=== PATIENT | female | born 1945 | race Caucasian/White ===

== ENCOUNTER 2016-09-11 09:19 | Day surgery (SDC) | payer MEDICARE, OTHER ==
[2016-09-08 22:12] LABS: BASOPHILS 1.2 %; BASOPHILS ABSOLUTE 0.06 10/3/uL (0.0-0.16); EOSINOPHILS 6.2 %; EOSINOPHILS ABSOLUTE 0.31 10/3/uL (0.0-0.53); HEMATOCRIT 35.6 % (36.0-48.0); HEMOGLOBIN 10.8 g/dL (12.0-16.0); IMMATURE GRANULOCYTES 1.8 %; IMMATURE GRANULOCYTES ABSOLUTE 0.09 10/3/uL (0.0-0.11); LYMPHOCYTES 18.3 %; LYMPHOCYTES ABSOLUTE 0.92 10/3/uL (0.67-4.30); MEAN CORPUSCULAR HEMOGLOB 28.4 pg (26.0-34.0); MEAN PLATELET VOLUME 9.3 fL (9.2-13.0); MONOCYTES 18.3 %; MONOCYTES ABSOLUTE 0.92 10/3/uL (0.21-1.20); NEUTROPHILS 54.2 %; NEUTROPHILS ABSOLUTE 2.74 10/3/uL (2.02-8.40); PLATELET COUNT 259 10/3/uL (150-400)
[2016-09-08 22:13] LABS: MANUAL DIFF NO %; MEAN CORPUS HGB CONC 30.3 g/dL (32.0-36.0); MEAN CORPUSCULAR VOLUME 93.7 fL (80-100); RBC DISTRIBUTION WIDTH 16.8 % (12.0-16.0)
[2016-09-08 22:16] LABS: ALBUMIN 3.6 G/DL (3.5-5.0); CALCIUM, SERUM 9.2 MG/DL (8.5-10.4); CHLORIDE, SERUM 102 MMOL/L (96-112); CO2 (CARBON DIOXIDE) 32 MMOL/L (24-34); CREATININE 0.63 MG/DL (0.55-1.02); GFR AFRICAN AMERICAN 105 ML/MIN (>=60); GFR NON AFRICAN AMERICAN 90 ML/MIN (>=60); GLUCOSE, SERUM 144 MG/DL (60-99); POTASSIUM, SERUM 4.2 MMOL/L (3.5-5.3); SGOT(AST) 7 U/L (5-40); SGPT(ALT) 15 U/L (5-65); SODIUM, SERUM 144 MMOL/L (135-148); TOTAL BILIRUBIN 0.3 MG/DL (0-1.2)
[2016-09-08 22:17] LABS: A/G RATIO 1.5 (0.7-1.9); ALKALINE PHOSPHATASE 55 U/L (45-117); BUN (BLOOD UREA NITROGEN) 9 MG/DL (6-23); GLOBULIN 2.4 G/DL (2.5-4.1)
--- NOTE | ~2016-09-11 | PREOPHP ---
PreOp History and Physical [address] [place]. [address] NAME: LUIS VAZQUEZ : 45 [place]US : [place] [facility] [place]#: [id number] AGE: 71 ADM/REG DATE : MR#: [id number] REPORT SERV DATE: 09/11/16 DICTATED BY: ERUM CASTILLO III DATE: 08/27/16 REPORT STATUS : Draft TRANSCRIBED BY: MODL DATE: 08/27/16 HISTORY OF PRESENT ILLNESS: This 71-year-old female comes to the operating room for right breast lumpectomy with stereotactic wire localization, sentinel lymph node biopsy, and possible axillary dissection. The patient was recently diagnosed with a cancer of the right breast. She had a palpable mass at the 10 o'clock position of the right breast. This was a triple-negative cancer, approximately 2.3 cm in size radiographically. The patient has completed neoadjuvant chemotherapy. The mass has resolved clinically. She has elected to have breast conservative therapy. She comes now for right breast lumpectomy with radiographic localization of the tumor, sentinel lymph node biopsy, and possible axillary dissection. The option of mastectomy has been offered to the patient, but declined. PAST MEDICAL HISTORY: 1. Diabetes mellitus. 2. COPD. 3. Hypertension. 4. Hyperlipidemia. 5. Osteoarthritis. 6. History of aortic valve replacement. ALLERGIES: SULFA. PAST SURGICAL HISTORY: Includes hysterectomy, Port-A-Cath placement, right shoulder surgery, aortic valve replacement, and bilateral knee replacement. FAMILY HISTORY: Positive for hypertension and diabetes. MEDICATIONS: Aspirin, Byetta, estradiol, glipizide, hydrocodone, losartan, metformin, and pravastatin. PHYSICAL EXAMINATION: GENERAL: This is a female, in no acute distress. She is alert and oriented x3. VITAL SIGNS: Blood pressure 104/55, heart rate 98, and temp 97.7. HEENT: Unremarkable. Cranial nerves II through XII are normal. LUNGS: Clear. CARDIAC: Normal. BREASTS: The right breast is unremarkable. The previous mass is no longer palpable. The right nipple is normal without discharge. The right axilla is normal without adenopathy. The left breast is normal with no masses or abnormalities palpable. The left nipple is normal without discharge. The left axilla is normal without adenopathy. EXTREMITIES: Normal. ASSESSMENT: 1. A 71-year-old female with 2.3 cm invasive ductal cancer at the 10 o'clock position of PreOp History and Physical [address] [address] NAME: LUIS VAZQUEZ : 45 STATUS : [place] [facility] [place]#: [id number] AGE: 71 ADM/REG DATE : MR#: [id number] REPORT SERV DATE: 09/11/16 DICTATED BY: ERUM CASTILLO III DATE: 08/27/16 REPORT STATUS : Draft TRANSCRIBED BY: CANDIE DATE: 08/27/16 the right breast, status post neoadjuvant chemotherapy with good clinical response. 2. Chronic obstructive pulmonary disease. 3. Arthritis. 4. Hyperlipidemia. 5. Hypertension. 6. Diabetes mellitus. It should be noted that the patient has a clinical stage IIA breast cancer. PLAN: The patient comes to the operating room now for right breast lumpectomy with stereotactic wire localization, sentinel lymph node biopsy, and possible axillary dissection if her sentinel lymph node is positive for malignancy. The option of mastectomy has been offered to the patient, but declined. Regarding the surgery, the procedure, risks, benefits, and alternatives, including not limited to the risk for bleeding, infection, pain, swelling, scarring, or deformity to the area, seroma formation, hematoma formation, distortion of the breast, change in size of the breast, nerve injury, chronic paresthesia or pain in the arm, shoulder, or axilla, chronic lymphedema of the arm, nerve injuries, muscle weakness or paralysis in muscles of upper back or shoulder, possible need to return operating room for wider excision, completion of mastectomy, or completion axillary dissection, if there is discrepancy between the frozen section and final pathology report, and unforeseen complications including deep venous thrombosis, pulmonary embolus, myocardial infarction, stroke, pneumonia, and , have been explained to the patient prior to surgery. Her questions been answered. She clearly understands the risks and agrees to surgery as planned. NIRMALA/CANDIE Erum Castillo III, M.D. / [id number] CC: Raquel Morel NP
--- NOTE | ~2016-09-11 | OP ---
Record Of Operation [facility] [address] [place]. [address] NAME: LUIS VAZQUEZ : 45 STATUS : REG [place]#: [id number] AGE: 71 ADM/REG DATE : 09/11/16 MR#: [id number] REPORT SERV DATE: 09/11/16 DICTATED BY: ERUM RODRIGUEZ III DATE: 09/11/16 REPORT STATUS : Draft TRANSCRIBED BY: MODNupur DATE: 09/11/16 DATE OF PROCEDURE: 09/11/2016 PREOPERATIVE DIAGNOSIS: Invasive cancer of the right breast. POSTOPERATIVE DIAGNOSIS: Invasive cancer of the right breast. PROCEDURE: Right breast segmentectomy with sentinel lymph node biopsy, and stereotactic wire localization. SURGEON: Erum Rodriguez M.D. ANESTHESIA: General with intubation. COMPLICATIONS: None. ESTIMATED BLOOD LOSS: 20 mL. SPECIMENS: Lumpectomy specimen from right breast and sentinel lymph node from right axilla. DRAINS: None. LAP AND SPONGE COUNT: Correct x3. BRIEF HISTORY: This 71-year-old female, has a history of invasive cancer of the right breast. The patient is status post preoperative neoadjuvant chemotherapy. She had a good response clinically. It was now felt that right breast lumpectomy with sentinel lymph node biopsy, and possible axillary dissection was indicated. These procedures, the risks, benefits, and alternatives, including not limited to the risk for bleeding, infection, pain, swelling, scarring, deformity to the area, seroma formation, hematoma formation, distortion of breast, change in size of the breast, nerve injury, chronic paresthesia, or pain in the arm, shoulder, or axilla, chronic lymphedema of the arm, nerve injuries, muscle weakness or paralysis in the muscles of upper back or shoulder, possible need to return for wider excision, completion of mastectomy, or completion axillary dissection, if there were discrepancy with the frozen section and final pathology report, and unforeseen complications including deep venous thrombosis, pulmonary embolus, myocardial infarction, stroke, pneumonia, and , were fully and completely explained to the patient and family prior to surgery. The option of mastectomy was offered to the patient, but declined. The patient's questions were answered. She understood the risks and agreed to surgery as planned. PROCEDURE IN DETAIL: After being properly identified and after discussing the risks of surgery with the patient and family again in the preoperative area, and after lymphoscintigraphy and stereotactic wire localization of the lesion had been performed per Radiology, the patient was taken to the operating room, and placed in the supine position on the operating room table. General anesthesia was administered. She was intubated without difficulty. The right arm, breast, and axilla were prepped and draped sterilely in usual Record Of Operation [address] [address] NAME: LUIS VAZQUEZ : 45 STATUS : REG [facility] [place] PAT#: [id number] AGE: 71 ADM/REG DATE : 09/11/16 MR#: [id number] REPORT SERV DATE: 09/11/16 DICTATED BY: ERUM RODRIGUEZ III DATE: 09/11/16 REPORT STATUS : Draft TRANSCRIBED BY: CANDIE DATE: 09/11/16 fashion. After an appropriate "time-out" per JCAHO standards, a curvilinear incision was made in the upper outer quadrant of the right breast at the exit site of the guidewire from the skin, at about the 10 o'clock to the 9 o'clock position. A generous core of breast tissue was then resected using the guidewire at the center of the core. The incision was continued down to the major pectoral fascia. A portion of the major pectoral fascia was removed with the specimen. The specimen again including the guidewire which was in the center of the segmentectomy specimen was removed and oriented with sutures. This was sent to specimen imaging and interpreted as containing the clip. This was then sent to pathology and interpreted as containing the clip, but no visible tumor remaining after neoadjuvant therapy and clear margins. Through the same incision, we dissected into the right axilla. Using sharp dissection, we dissected in the right axilla. With the navigator probe, we identified two separate sentinel lymph nodes. These were both resected. The ex-vivo 10-second count of these together was approximately 4800. The background count of the axilla over 10 seconds after removal of these lymph nodes was 0. These sentinel lymph nodes were sent to pathology and interpreted as being benign with no evidence for malignancy. There are no suspicious lesions or adenopathy noted in the axilla. The wound was irrigated copiously with saline. Hemostasis was assured. The subcutaneous tissue was closed with a running 2-0 Vicryl suture. The skin was closed with running subcuticular 4-0 Monocryl stitch. The incision was injected with 0.5% Marcaine. Dressings were applied. Anesthesia was reversed and the patient was taken to the recovery room in stable condition. She tolerated the procedure well. Her family was informed the results of surgery. The patient to be discharged when stable and comfortable. Her family was advised that she should keep wound clean and dry for 48 hours, that she should not drive for three to four days after surgery or while using narcotics, and that she should resume her usual medications. She has been asked to return in two weeks for followup or sooner if any fever, chills, wound drainage, or other problems prior that time. She was given a prescription for Percocet 7.5 one t.i.d., #12, as needed for pain, which she was advised not to use while driving. RHJ/MODL Erum Rodriguez III, M.D. / [id number] CC: Serge Nicholas III, VICKY L *
[~2016-09-11 09:19] MED LIST: ADVAIR250 INH; ASAB PO; AVALIDE1 TA1 PO; BYETTA10 SC; ESTRACE0.5 MG PO; ESTRADIOL0.5 MG OR; FORTAMET500 MG PO; GLUCOPHAGE1000 MG PO; GLUCOTROL5 PO; GLUCXL2.5 PO; HYZAAR 100/25 T1 TAB PO; LANTUS SC; LEVEMFLXPN SC; LORTAB10 PO; LYRICA75 PO; NORCO1 TAB; NORCO1 TAB PO; NU IRON PO; PCET PO; PR12.5 PO; PRAVACHOL40 MG PO; PRILOSEC40 MG PO; RHINOAQ NAS; SINGULAIR1 PO; TRILIPIX135 MG PO; TYLENOL ARTH650 MG PO; VITAMIN C GUMMY PO; ZOL50 PO
[2016-12-10] MEDS ORDERED: CLARIT10 PO (11:33)
== END 2016-09-11 19:32 | disposition home or self-care (01) ==
LOC: SDC 09:19
PROVIDERS: Surgery
PROC: 07B50ZX Excision of Right Axillary Lymphatic, Open Approach, Diagnostic (ICD-10-PCS; 2016-09-11)
PROC: 0HBT0ZZ Excision of Right Breast, Open Approach (ICD-10-PCS; principal; 2016-09-11 13:30)
DX: C50.911 Malignant neoplasm of unspecified site of right female breast (principal); I10 Essential (primary) hypertension; F41.9 Anxiety disorder, unspecified; E11.9 Type 2 diabetes mellitus without complications; E66.9 Obesity, unspecified; E78.5 Hyperlipidemia, unspecified; J44.9 Chronic obstructive pulmonary disease, unspecified; G47.33 Obstructive sleep apnea (adult) (pediatric); Z99.89 Dependence on other enabling machines and devices; Z88.2 Allergy status to sulfonamides; Z79.82 Long term (current) use of aspirin; Z79.4 Long term (current) use of insulin; Z79.84 Long term (current) use of oral hypoglycemic drugs; Z79.3 Long term (current) use of hormonal contraceptives; Z79.899 Other long term (current) drug therapy; Z90.89 Acquired absence of other organs; E78.00 Pure hypercholesterolemia, unspecified; Z87.891 Personal history of nicotine dependence; J45.909 Unspecified asthma, uncomplicated; M19.90 Unspecified osteoarthritis, unspecified site; Z96.653 Presence of artificial knee joint, bilateral; Z86.010 Personal history of colon polyps; Z90.710 Acquired absence of both cervix and uterus; Z98.890 Other specified postprocedural states
CPT/HCPCS: 36415; 71020; 76098; 78195; 80053; 82962; 85025; 88307; 88331; 88332; 88342; 93005; A9270-GY; A9541; J0690; J1170; J2250; J2405; J2710; J3010

== ENCOUNTER 2016-12-15 05:36 | Day surgery (SDC) | payer MEDICARE, OTHER ==
[2016-12-10 17:51] LABS: BASOPHILS 0.7 %; BASOPHILS ABSOLUTE 0.04 10/3/uL (0.0-0.16); EOSINOPHILS 13.7 %; EOSINOPHILS ABSOLUTE 0.81 10/3/uL (0.0-0.53); HEMOGLOBIN 12.9 g/dL (12.0-16.0); IMMATURE GRANULOCYTES 0.3 %; IMMATURE GRANULOCYTES ABSOLUTE 0.02 10/3/uL (0.0-0.11); LYMPHOCYTES ABSOLUTE 1.01 10/3/uL (0.67-4.30); MEAN CORPUSCULAR HEMOGLOB 27.9 pg (26.0-34.0); MEAN PLATELET VOLUME 9.6 fL (9.2-13.0); MONOCYTES 7.9 %; MONOCYTES ABSOLUTE 0.47 10/3/uL (0.21-1.20); NEUTROPHILS 60.4 %; NEUTROPHILS ABSOLUTE 3.58 10/3/uL (2.02-8.40); PLATELET COUNT 205 10/3/uL (150-400); RBC DISTRIBUTION WIDTH 15.4 % (12.0-16.0); WHITE BLOOD CELLS 5.9 10/3/uL (4.5-10.5)
[2016-12-10 17:53] LABS: HEMATOCRIT 40.1 % (36.0-48.0); MANUAL DIFF NO %; MEAN CORPUS HGB CONC 32.2 g/dL (32.0-36.0); MEAN CORPUSCULAR VOLUME 86.8 fL (80-100); RED CELL COUNT 4.62 10/6/uL (4.0-5.6)
[2016-12-10 18:05] LABS: A/G RATIO 1.4 (0.7-1.9); ALBUMIN 3.9 G/DL (3.5-5.0); ALKALINE PHOSPHATASE 59 U/L (45-117); BUN (BLOOD UREA NITROGEN) 14 MG/DL (6-23); CALCIUM, SERUM 8.6 MG/DL (8.5-10.4); CHLORIDE, SERUM 105 MMOL/L (96-112); CREATININE 0.67 MG/DL (0.55-1.02); GFR AFRICAN AMERICAN 102 ML/MIN (>=60); GFR NON AFRICAN AMERICAN 88 ML/MIN (>=60); GLOBULIN 2.8 G/DL (2.5-4.1); SGPT(ALT) 17 U/L (5-65); SODIUM, SERUM 143 MMOL/L (135-148); TOTAL PROTEIN 6.7 G/DL (6.0-8.5)
[2016-12-10 18:08] LABS: CO2 (CARBON DIOXIDE) 27 MMOL/L (24-34); GLUCOSE, SERUM 89 MG/DL (60-99); POTASSIUM, SERUM 5.7 MMOL/L (3.5-5.3); TOTAL BILIRUBIN 1.1 MG/DL (0-1.2)
[2016-12-10 18:09] LABS: SGOT(AST) 30 U/L (5-40)
--- NOTE | ~2016-12-15 | OP ---
Record Of Operation [facility] [address] [place]. [address] NAME: LUIS VAZQUEZ : 45 STATUS : REG [facility] PAT#: [id number] AGE: 71 ADM/REG DATE : 12/15/16 MR#: [id number] REPORT SERV DATE: 12/15/16 DICTATED BY: ERUM RODRIGUEZ III DATE: 12/15/16 REPORT STATUS : Draft TRANSCRIBED BY: CANDIE DATE: 12/15/16 DATE OF PROCEDURE: 12/15/2016 PREOPERATIVE DIAGNOSIS: History of right breast cancer, in remission, need for removal of unused left subclavian Port-A-Cath. POSTOPERATIVE DIAGNOSIS: History of right breast cancer, in remission, need for removal of unused left subclavian Port-A-Cath. PROCEDURE: Removal of left subclavian Port-A-Cath. ANESTHESIA: General with intubation. COMPLICATIONS: None. ESTIMATED BLOOD LOSS: Less than 5 mL. SPECIMENS: Port-A-Cath for identification. DRAINS: None. LAP AND SPONGE COUNT: Correct x3. BRIEF HISTORY: This 71-year-old female, has a history of right breast cancer, stage II. She is status post lumpectomy, sentinel lymph node biopsy, and chemotherapy, and radiation treatment. She comes now for removal of her left subclavian Port-A-Cath. This procedure, the risks, benefits, and alternatives, including not limited to the risk for bleeding, infection, air embolus, pericardial tamponade, dislodgement of Port-A-Cath tubing requiring extraction, and unforeseen complications including deep venous thrombosis, pulmonary embolus, myocardial infarction, stroke, pneumonia, and , have been explained to the patient prior to surgery. She had questions, which were answered. She understood the risks and agreed to surgery as planned. DESCRIPTION OF PROCEDURE: After being properly identified, and after discussing risks of surgery with her again in the preoperative area, she was taken to the operating room and placed in the supine position on the operating room table. General anesthesia was administered. She was intubated without difficulty. The upper chest and neck areas were prepped and draped sterilely in the usual fashion. After an appropriate "time-out" per JCAHO standards, a small incision was made over the left infraclavicular Port-A-Cath over the previous incision. The incision was continued through subcutaneous tissue. Hemostasis was controlled with cautery. The capsule around the Port-A-Cath was opened. The sutures holding the Port-A-Cath in place were divided. The Port-A-Cath housing and tubing were removed. The entire tubing was removed. Pressure was held at the exit site of the tubing from the subcutaneous tissue to prevent air embolus. This exit site was closed with a 3-0 Vicryl suture. Hemostasis was assured. The subcutaneous tissue was closed with a running 3 0 Vicryl suture. The skin was closed with running subcuticular 4-0 Monocryl stitch. The Record Of Operation [id number] [facility] [place]. [address] NAME: LUIS VAZQUEZ : 45 STATUS : REG [facility]#: [id number] AGE: 71 ADM/REG DATE : 12/15/16 MR#: [id number] REPORT SERV DATE: 12/15/16 DICTATED BY: ERUM RODRIGUEZ III DATE: 12/15/16 REPORT STATUS : Draft TRANSCRIBED BY: CANDIE DATE: 12/15/16 incision was injected with 0.5% Marcaine. Dressings were applied. Anesthesia was reversed. The patient was taken to the recovery room in stable condition. She tolerated the procedure well. Her family was informed results of surgery. The patient will be discharged when stable and comfortable. Her family was advised to keep the wound clean and dry for 48 hours, that she should not drive for two to three days after surgery or while using narcotics, and that she should resume her usual medications. She was asked to return in two weeks for followup or sooner if any fever, chills, wound drainage, or other problems prior to that time. She was given a prescription for Percocet 7.5 one t.i.d. #12 as needed for pain, which she was advised not to use while driving or with other narcotics. She was advised to monitor her glucose carefully. NIRMALA/CANDIE Erum Rodriguez III, M.D. / [id number] CC: Serge Nicholas III, VICKY L *
--- NOTE | ~2016-12-15 | PREOPHP ---
PreOp History and Physical [address] [place]. [address] NAME: LUIS VAZQUEZ : 45 STATUS : REG [facility] [place] PAT#: [id number] AGE: 71 ADM/REG DATE : 12/15/16 MR#: [id number] REPORT SERV DATE: 12/15/16 DICTATED BY: ERUM CASTILLO III DATE: 12/15/16 REPORT STATUS : Draft TRANSCRIBED BY: MODNupur DATE: 12/15/16 HISTORY OF PRESENT ILLNESS: This is a 71-year-old female who comes to the operating room for removal of a left subclavian vein Port-A-Cath. The patient has a history of previous left breast cancer. She comes to the operating room now for removal of her left subclavian Port-A-Cath. The patient is status post appropriate surgical treatment and chemotherapy. PAST MEDICAL HISTORY: 1. History of stage II right breast cancer, status post right breast lumpectomy sentinel lymph node biopsy performed on 09/11/2016, no evidence for recurrent or residual disease. 2. Asthma. 3. COPD. 4. Insulin-dependent diabetes mellitus. 5. Hyperlipidemia. 6. Hypertension. ALLERGIES: TO SULFA. MEDICATIONS: 1. Aspirin. 2. Byetta. 3. Estradiol. 4. Glipizide. 5. Hydrocodone. 6. Losartan. 7. Metformin. 8. Pravastatin. PHYSICAL EXAMINATION: GENERAL: This is a female, in no acute distress. She is alert and oriented x3. HEENT: Unremarkable. Cranial nerves 2 through 12 are normal. LUNGS: Clear. CARDIAC: Unremarkable. She has a left infraclavicular Port-A-Cath in place. ASSESSMENT: 1. A 71-year-old female with history of right breast cancer, status post appropriate surgical treatment and chemotherapy and lumpectomy, with need for removal of left subclavian vein Port-A-Cath. 2. Asthma. 3. Chronic obstructive pulmonary disease. 4. Insulin-dependent diabetes mellitus. 5. Hypertension. PLAN: The patient comes to the operating room now for removal of her left subclavian vein Port-A-Cath. This procedure, the risks, benefits, and alternatives, including but not PreOp History and Physical [address] [place]. [address] NAME: LUIS VAZQUEZ : 45 STATUS : REG [facility] [place] PAT#: [id number] AGE: 71 ADM/REG DATE : 12/15/16 MR#: [id number] REPORT SERV DATE: 12/15/16 DICTATED BY: ERUM CASTILLO III DATE: 12/15/16 REPORT STATUS : Draft TRANSCRIBED BY: CANDIE DATE: 12/15/16 limited to the risk for bleeding, infection, air embolus, pericardial tamponade, dislodgement of tubing requiring extraction, and unforeseen complications including deep venous thrombosis, pulmonary embolus, myocardial infarction, stroke, pneumonia, and , have been explained to her. Her questions were answered. She understands the risks and agrees to surgery as planned. NIRMALA/CANDIE Erum Castillo III, M.D. / [id number] CC: Serge Nicholas III, NP
--- NOTE | ~2016-12-15 | PREOPHP ---
PreOp History and Physical [address] [place]. [address] NAME: LUIS VAZQUEZ : 45 STATUS : PRE [facility] [place] PAT#: [id number] AGE: 71 ADM/REG DATE : MR#: [id number] REPORT SERV DATE: 12/14/16 DICTATED BY: ERUM CASTILLO III DATE: 11/19/16 REPORT STATUS : Draft TRANSCRIBED BY: MODNupur DATE: 11/19/16 HISTORY OF PRESENT ILLNESS: This 71-year-old female comes to the operating room for removal of a Port-A-Cath. The patient has a history of previous right breast lumpectomy for breast cancer. She is status post appropriate treatment and chemotherapy. She comes now for removal of her Port-A Cath. PAST MEDICAL HISTORY: 1. History of stage II right breast cancer, status post right breast lumpectomy with sentinel lymph node biopsy performed 09/11/2016, with no evidence for residual or recurrent disease. 2. Asthma. 3. COPD. 4. Insulin-dependent diabetes mellitus. 5. Hypertension. 6. Hyperlipidemia. ALLERGIES: SULFA. MEDICATIONS: Aspirin; Byetta; estradiol; glipizide; hydrocodone; losartan; metformin; and pravastatin. PHYSICAL EXAMINATION: OBJECTIVE PHYSICAL EXAM: GENERAL: This is a female, in no acute distress. She is alert and oriented x3. HEENT: Unremarkable. NEUROLOGIC: Cranial nerves 2 through 12 are normal. LUNGS: Clear. CARDIAC: Normal. ASSESSMENT: 1. A 71-year-old female with a history of right breast cancer, status post appropriate treatment and chemotherapy, with need for removal of subclavian vein Port-A-Cath. 2. Asthma. 3. COPD. 4. Insulin-dependent diabetes mellitus. 5. Hypertension. PLAN: The patient comes to the operating room now for removal of her subclavian vein Port-A- Cath. This procedure, the risks, benefits, and alternatives, including but not limited to the risk for bleeding, infection, air embolus, pericardial tamponade, dislodgement of Port-A Cath tubing requiring extraction, and unforeseen complications including deep venous thrombosis, pulmonary embolus, myocardial infarction, stroke, pneumonia, and , have been explained the patient prior to surgery. Her questions have been answered. She understands the risks and agrees to the surgery as planned. PreOp History and Physical [address] [place] [address] NAME: LUIS VAZQUEZ : 45 STATUS : PRE [facility] [place] PAT#: [id number] AGE: 71 ADM/REG DATE : MR#: [id number] REPORT SERV DATE: 12/14/16 DICTATED BY: ERUM CASTILLO III DATE: 11/19/16 REPORT STATUS : Draft TRANSCRIBED BY: CANDIE DATE: 11/19/16 Reyonld/CANDIE Erum Castillo III, M.D. / [id number]
[~2016-12-15 05:36] MED LIST changes: +CLARIT10 PO
== END 2016-12-15 16:31 | disposition home or self-care (01) ==
LOC: SDC 05:36
PROVIDERS: Surgery
PROC: 0JPV0WZ Removal of Totally Implantable Vascular Access Device from Upper Extremity Subcutaneous Tissue and Fascia, Open Approach (ICD-10-PCS; principal; 2016-12-15 06:45)
DX: Z45.2 Encounter for adjustment and management of vascular access device (principal); I10 Essential (primary) hypertension; E78.00 Pure hypercholesterolemia, unspecified; E11.9 Type 2 diabetes mellitus without complications; J44.9 Chronic obstructive pulmonary disease, unspecified; J45.909 Unspecified asthma, uncomplicated; G47.33 Obstructive sleep apnea (adult) (pediatric); F41.9 Anxiety disorder, unspecified; M19.90 Unspecified osteoarthritis, unspecified site; H26.9 Unspecified cataract; Z85.3 Personal history of malignant neoplasm of breast; Z87.891 Personal history of nicotine dependence; Z86.010 Personal history of colon polyps; Z92.21 Personal history of antineoplastic chemotherapy; Z95.2 Presence of prosthetic heart valve; Z96.653 Presence of artificial knee joint, bilateral; Z90.89 Acquired absence of other organs; Z90.710 Acquired absence of both cervix and uterus; Z88.2 Allergy status to sulfonamides; Z79.82 Long term (current) use of aspirin; Z79.818 Long term (current) use of other agents affecting estrogen receptors and estrogen levels; Z79.4 Long term (current) use of insulin; Z79.84 Long term (current) use of oral hypoglycemic drugs; Z79.899 Other long term (current) drug therapy
CPT/HCPCS: 36415; 80053; 82962; 84132; 85025; 88300; 93005; J0690; J2405; J3010